=== PATIENT | female | born 1935 ===

== ENCOUNTER 2020-06-04 02:51 | Outpatient (CLI) | payer MEDICARE, BC, SELFPAY ==
[2020-06-05 18:46] LABS: COVID-19 RT-PCR UVMMC Result Negative (Negative)
== END 2020-06-04 03:11 ==
PROVIDERS: Visit Provider Nurse Practitioner
DX: Z11.59 Encounter for screening for other viral diseases (principal); Z01.818 Encounter for other preprocedural examination
CPT/HCPCS: U0003

== ENCOUNTER 2020-07-08 03:06 | Outpatient (CLI) | payer MEDICARE, BC, SELFPAY ==
[2020-07-09 18:35] LABS: COVID-19 RT-PCR UVMMC Result Negative (Negative)
== END 2020-07-08 03:26 ==
PROVIDERS: Visit Provider Nurse Practitioner
DX: Z11.52 Encounter for screening for COVID-19 (principal); Z01.818 Encounter for other preprocedural examination
CPT/HCPCS: U0003

== ENCOUNTER 2023-08-09 18:23 | Outpatient (REF) | payer MEDICARE, BC, SELFPAY ==
[2023-08-09 21:46] LABS: Abs Immature Grans 0.03 10^3/uL (0.0-0.06); Absolute Basophil Count 0.05 10^3/uL (0.0-0.2); Absolute Eosinophil Count 0.07 10^3/uL (0.0-0.7); Absolute Lymphocyte Count 0.86 10^3/uL (1.2-3.4); Absolute Monocyte Count 0.48 10^3/uL (0.1-0.8); Absolute Neutrophil Count 7.34 10^3/uL (1.2-6.7); Basophils % 0.6; Eosinophils % 0.8; HCT 43.4 % (36.0-46.0); HGB 13.6 g/dL (11.2-15.7); Immature Grans % 0.3; Lymphocytes % 9.7; MCH 25.3 pg (27.0-33.0); MCHC 31.3 % (32.0-36.0); MCV 81 fL (80-95); MPV 10.1 fL (8.0-11.0); Monocytes % 5.4; Neutrophils % 83.2; Platelet Count 348 10^3/uL (130-400); RBC 5.37 10^6/uL (3.93-5.22); RDW 15.4 % (11.7-14.6); RDW-SD 44.4 fL; WBC 8.83 10^3/uL (4.4-10.8)
[2023-08-09 22:03] LABS: ALT 13 U/L (14-59); AST 21 U/L (15-37); Albumin 3.1 g/dL (3.4-5.0); Alkaline Phosphatase 97 U/L (46-116); Anion Gap 8.8 mmol/L (3-11); BUN 31 mg/dL (7-18); Bilirubin, Total 0.5 mg/dL (0.2-1.0); CO2 29.2 mmol/L (21.0-32.0); CREATININE 1.9 mg/dL (0.55-1.02); Calcium 9.2 mg/dL (8.5-10.1); Chloride 102 mmol/L (98-107); Glucose 147 mg/dL (74-106); Hemoglobin A1C 6.2 % (<5.7); Potassium 3.3 mmol/L (3.5-5.1); Sodium 140 mmol/L (136-145); Total Protein 6.8 g/dL (6.4-8.2)
== END 2023-08-09 18:24 | disposition home or self-care (01) ==
LOC: NCHCN 18:23
PROVIDERS: Visit Provider Family Medicine
DX: R73.03 Prediabetes (principal); R53.83 Other fatigue; N18.9 Chronic kidney disease, unspecified
CPT/HCPCS: 80053; 83036; 85025

== ENCOUNTER 2024-01-18 17:36 | Outpatient (REF) | payer MEDICARE, BC, SELFPAY ==
[2024-01-18 22:48] LABS: Anion Gap 8.9 mmol/L (3-11); BUN 40 mg/dL (7-18); CO2 27.1 mmol/L (21.0-32.0); CREATININE 1.9 mg/dL (0.55-1.02); Calcium 9.5 mg/dL (8.5-10.1); Chloride 101 mmol/L (98-107); Glucose 116 mg/dL (74-106); Potassium 4.2 mmol/L (3.5-5.1); Sodium 137 mmol/L (136-145)
== END 2024-01-18 17:37 | disposition home or self-care (01) ==
LOC: NCHCN 17:36
PROVIDERS: Visit Provider Family Medicine
DX: E87.6 Hypokalemia (principal)
CPT/HCPCS: 80048

== ENCOUNTER 2024-03-16 16:28 | Outpatient (REF) | payer MEDICARE, BC, SELFPAY ==
[2024-03-16 21:48] LABS: Anion Gap 6.7 mmol/L (3-11); BUN 35 mg/dL (7-18); CO2 30.3 mmol/L (21.0-32.0); CREATININE 2.1 mg/dL (0.55-1.02); Calcium 9.2 mg/dL (8.5-10.1); Chloride 102 mmol/L (98-107); Estimated GFR 22.52 (mL/min/1.73m2); Glucose 107 mg/dL (74-106); Potassium 4.3 mmol/L (3.5-5.1); Sodium 139 mmol/L (136-145)
== END 2024-03-16 16:29 | disposition home or self-care (01) ==
LOC: LBN 16:28
PROVIDERS: Visit Provider Nurse Practitioner Adult Health
DX: N18.32 Chronic kidney disease, stage 3b (principal); I50.32 Chronic diastolic (congestive) heart failure
CPT/HCPCS: 80048

== ENCOUNTER 2024-04-11 13:29 | Outpatient (REF) | payer MEDICARE, BC, SELFPAY ==
[2024-04-11 17:26] LABS: ALT 12 U/L (14-59); AST 12 U/L (15-37); Albumin 3.7 g/dL (3.4-5.0); Alkaline Phosphatase 104 U/L (46-116); BUN 35 mg/dL (7-18); Bilirubin, Total 0.46 mg/dL (0.2-1.0); CREATININE 2.2 mg/dL (0.55-1.02); Calcium 9.4 mg/dL (8.5-10.1); Chloride 105 mmol/L (98-107); Glucose 94 mg/dL (74-106); NT-proBNP 4356 pg/mL (<300); Potassium 4.2 mmol/L (3.5-5.1); Sodium 141 mmol/L (136-145); TSH (W/Ref FT4) 3.01 uIU/mL (0.36-3.74); Total Protein 7.1 g/dL (6.4-8.2)
== END 2024-04-11 13:30 | disposition home or self-care (01) ==
LOC: NCHCN 13:29
PROVIDERS: Visit Provider Family Medicine
DX: R60.0 Localized edema (principal); I50.32 Chronic diastolic (congestive) heart failure
CPT/HCPCS: 80053; 83880; 84443

== ENCOUNTER 2024-04-25 13:00 | Outpatient (REF) | payer MEDICARE, BC, SELFPAY ==
[2024-04-25 15:06] LABS: Anion Gap 7.2 mmol/L (3-11); BUN 29 mg/dL (7-18); CO2 30.8 mmol/L (21.0-32.0); CREATININE 2.1 mg/dL (0.55-1.02); Calcium 9.3 mg/dL (8.5-10.1); Chloride 104 mmol/L (98-107); Estimated GFR 22.38 (mL/min/1.73m2); Glucose 67 mg/dL (74-106); Sodium 142 mmol/L (136-145)
== END 2024-04-25 13:01 | disposition home or self-care (01) ==
LOC: NCHCN 13:00
PROVIDERS: Visit Provider Family Medicine
DX: R60.0 Localized edema (principal); R79.89 Other specified abnormal findings of blood chemistry; E66.9 Obesity, unspecified
CPT/HCPCS: 80048

== ENCOUNTER 2024-07-24 16:49 | Outpatient (REF) | payer MEDICARE, BC, SELFPAY ==
[2024-07-24 21:36] LABS: HCT 35.9 % (36.0-46.0); HGB 11.1 g/dL (11.2-15.7); MCH 24.7 pg (27.0-33.0); MCHC 30.9 % (32.0-36.0); MCV 80 fL (80-95); MPV 10.1 fL (8.0-11.0); Platelet Count 210 10^3/uL (130-400); RBC 4.49 10^6/uL (3.93-5.22); RDW 15.1 % (11.7-14.6); RDW-SD 43.8 fL; WBC 6.97 10^3/uL (4.4-10.8)
[2024-07-24 22:12] LABS: ALT 29 U/L (14-59); AST 18 U/L (15-37); Albumin 3.9 g/dL (3.4-5.0); Alkaline Phosphatase 101 U/L (46-116); Anion Gap 6.2 mmol/L (3-11); BUN 72 mg/dL (7-18); Bilirubin, Total 0.47 mg/dL (0.2-1.0); CO2 27.8 mmol/L (21.0-32.0); CREATININE 3.3 mg/dL (0.55-1.02); Calcium 9.2 mg/dL (8.5-10.1); Chloride 104 mmol/L (98-107); Estimated GFR 13.01 (mL/min/1.73m2); Glucose 127 mg/dL (74-106); NT-proBNP 4681 pg/mL (<300); Potassium 5.2 mmol/L (3.5-5.1); Sodium 138 mmol/L (136-145); TSH 2.72 uIU/mL (0.36-3.74)
== END 2024-07-24 16:50 | disposition home or self-care (01) ==
LOC: NCHCN 16:49
PROVIDERS: Visit Provider Family Medicine
DX: N18.9 Chronic kidney disease, unspecified (principal); I50.9 Heart failure, unspecified; E03.9 Hypothyroidism, unspecified
CPT/HCPCS: 80053; 85027; 83880; 84443